=== PATIENT | male | born 1985 | race Caucasian/White ===

== ENCOUNTER 2020-07-18 08:49 | Emergency (ER) | payer OTHER ==
[~2020-07-18] VITALS: Ht 172.7 cm; Wt 90.7 kg
--- NOTE | 2020-07-18 08:55 | NUR ---
Patient to ER bed H1 to gown for evaluation. Side rails up.
--- NOTE | 2020-07-18 08:57 | NUR ---
Pt brought by self, A&Ox4, pt presents to ER with anxiety /headache and diarrhea, pt states he has Hx of alcohol withdraws, pt was drinking last night, skin pink and warm, cap refill <3, VSS, respirations even and unlabored.
[2020-07-18 09:05] VITALS: BP_SYST 159
--- NOTE | 2020-07-18 09:21 | NUR ---
Dr Quintero evaluating patient at bedside
[2020-07-18] MEDS ORDERED: ONDANSETRON 4 MG ODT TAB PO ONE (09:30)
--- NOTE | 2020-07-18 09:43 | NUR ---
Patient given written and verbal discharge instructions and verbalizes understanding. ER MD discussed with patient the results and treatment provided. Patient in stable condition. ID arm band removed. Rx of zofran & libtium given. Patient educated on pain management and to follow up with PMD. Pain Scale 3/10. Opportunity for questions provided and answered. Medication side effect fact sheet provided.
[2020-07-18 11:56] VITALS: BP_SYST 162
== END 2020-07-18 09:43 ==
LOC: EDSEX 08:49 → SED 08:49
DX: F10.239 Alcohol dependence with withdrawal, unspecified (principal); F17.200 Nicotine dependence, unspecified, uncomplicated
CPT/HCPCS: 99283; Q0162